=== PATIENT | female | born 1960 | race Caucasian/White ===

== ENCOUNTER 2016-12-09 09:58 | Day surgery (SDC) | payer OTHER ==
[~2016-12-09] VITALS: Ht 167.6 cm; Wt 105.6 kg
[2016-12-09] MEDS ORDERED: PROPOFOL 20 ML ONE (10:59)
[2016-12-09] MEDS ORDERED: tamoxifen (11:16)
[2016-12-09 11:17] VITALS: Ht 167.6 cm; Wt 105.6 kg
[2016-12-09 11:38] VITALS: BP 145/82; PULSE 76; RESP 19
[2016-12-09 12:11] VITALS: BP 154/86; PULSE 66; RESP 17
[2016-12-09 12:43] VITALS: BP 191/99; PULSE 66
--- NOTE | 2016-12-09 14:03 | GILP ---
DATE OF PROCEDURE: 12/09/2016 NAME OF PROCEDURES: Colonoscopy and biopsy. SURGEON: James Hernandez MD PREOPERATIVE DIAGNOSIS: Screening colonoscopy. POSTOPERATIVE DIAGNOSES: 1. Colonoscopy all the way to the cecum. 2. Small sigmoid colon polyp was removed using the biopsy forceps. 3. Mild diverticulosis of the colon. 4. Internal hemorrhoids. INDICATION FOR THE PROCEDURE: Ms. Clayton Menchaca is a 56-year-old female patient who was scheduled f or screening colonoscopy. The procedure and possible complications were well explained to the patient. She understood and con sented to the procedure. DESCRIPTION OF PROCEDURE: Under the influence of anesthesia, the colonoscope was carefully introduc ed in the rectum and under direct vision, it was advanced all the way to the cecum. FINDINGS: The patient had a small sigmoid colon polyp and it was removed using the biopsy forceps. She had internal hemorrhoids. She tolerated the procedure very well and there was no complication from the procedure. At the end of the procedure, she was awake with stable vital signs and she was discharged home to the care of h er family. IMPRESSION: 1. Colonoscopy all the way to the cecum. 2. Small sigmoid colon polyp was removed. 3. Mild diverticulosis of the colon. 4. Internal hemorrhoids. PLAN: Next screening colonoscopy in 10 years. Dictated By: JAMES KRUEGER/ABEL Conf#: [id number] DID#: [id number] CC: JAMES HERNANDEZ MD;*EndCC*
== END 2016-12-09 15:04 | disposition home or self-care (01) ==
LOC: GIL 09:58
PROVIDERS: ATTEND Internal Medicine Gastroenterology
DX: Z12.11 Encounter for screening for malignant neoplasm of colon (principal); D12.5 Benign neoplasm of sigmoid colon; E66.01 Morbid (severe) obesity due to excess calories; Z68.37 Body mass index [BMI] 37.0-37.9, adult
CPT/HCPCS: 45380; 88305; Z7610